=== PATIENT | female | born 2000 | race Hispanic/Latino ===

== ENCOUNTER → 2023-10-29 14:14 | Outpatient (CLI) | payer OTHER, SELFPAY ==
[2023-10-29 15:56] LABS: Hemoglobin A1C% w Est Avg Glu 4.8 % (4.0-6.0)
[2023-10-29 15:59] LABS: Testosterone 62.8 ng/dL (5.71-77.0)
== END ==
PROVIDERS: PCP Family Medicine; Referring Provider Student in an Organized Health Care Education/Training Program; Visit Provider Student in an Organized Health Care Education/Training Program
DX: L68.0 Hirsutism (principal)
CPT/HCPCS: 36415; 82627; 83036; 83498; 84403